=== PATIENT | female | born 1980 | race Caucasian/White ===

== ENCOUNTER 2020-05-23 08:34 | Outpatient (CLI) | payer BC, OTHER ==
[~2020-05-23 08:34] MED LIST: COLACE 100MG C100 MG PO
[2020-05-23 09:19] LABS: HEMOGLOBIN 13.9 gm/dl (12.3-15.3); RED BLOOD COUNT 4.93 M/UL (4.00-5.10); WHITE BLOOD COUNT 6.7 K/UL (4.5-11.0)
== END 2020-05-23 12:00 ==
LOC: OPSV2 08:34
PROVIDERS: Obstetrics & Gynecology
DX: Z01.812 Encounter for preprocedural laboratory examination (principal); R32 Unspecified urinary incontinence
CPT/HCPCS: 36415; 81001; 85025

== ENCOUNTER 2020-05-29 07:06 | Inpatient (IN) | payer BC, OTHER ==
[~2020-05-29] VITALS: Ht 162.6 cm; Wt 86.2 kg
[2020-05-29] MEDS ORDERED: OMEPRAZOLE20 M1 PO (07:32)
[2020-05-29] MEDS ORDERED: HYDROCODON-ACE1 EAC4 PO (09:09)
[2020-05-30 04:43] LABS: HEMOGLOBIN 10.9 gm/dl (12.3-15.3)
--- NOTE | 2020-05-30 15:12 | NUR ---
0900: PATIENT VOIDED 50 ML, UPON CATH, [address] GOLDEN, INSTRUCTED TO COMPLETE AGAIN AT 12:30. 1230: PATIENT VOIDED 400 ML, UPON CATH, [address] GOLDEN, INSTRUCTED TO COMPLETE AGAIN AT 1800.
--- NOTE | 2020-05-30 18:25 | NUR ---
DR. GOLDEN NEW ORDERS, PVR AT 11 PM AND AGAIN AT 6 AM. DO NOT CALL WITH RESULTS.
== END 2020-05-31 18:07 | disposition home or self-care (01) | DRG 355 ==
LOC: OR 07:06 → M/S 12:51
PROVIDERS: Surgery; ADMIT Obstetrics & Gynecology
PROC: 0WUF4JZ Supplement Abdominal Wall with Synthetic Substitute, Percutaneous Endoscopic Approach (ICD-10-PCS; principal; 2020-05-29 08:00)
PROC: 0TQD8ZZ Repair Urethra, Via Natural or Artificial Opening Endoscopic (ICD-10-PCS; 2020-05-29 08:00)
DX: K42.9 Umbilical hernia without obstruction or gangrene (principal); N39.3 Stress incontinence (female) (male); Z20.822 Contact with and (suspected) exposure to COVID-19; K21.9 Gastro-esophageal reflux disease without esophagitis; E66.01 Morbid (severe) obesity due to excess calories; Z68.32 Body mass index [BMI] 32.0-32.9, adult; F41.9 Anxiety disorder, unspecified; F32.9 Major depressive disorder, single episode, unspecified
CPT/HCPCS: 36415; 84703; 85014; 85018; C1771; C1781; J0690; J1100; J1170; J1885; J2001; J2250; J2405; J2704; J2710; J2795; J3010; J7120; U0003